=== PATIENT | male | born 1975 | race Caucasian/White ===

== ENCOUNTER → 2018-12-24 07:54 | Outpatient (CLI) | payer MEDICARE, MEDICAID, SELFPAY ==
--- NOTE | 2018-12-24 08:02 | US_ITS ---
STUDY: ABDOMINAL ULTRASOUND - RIGHT UPPER QUADRANT REASON FOR VISIT: Male, 43 years old abdominal pain when eating. TECHNIQUE: Ultrasound evaluation of the right upper quadrant was performed with real-time and static thayer-scale imaging. TECHNICAL QUALITY: Examination limited by bowel gas. COMPARISON: None. FINDINGS: Liver: The liver measures 16.9 cm. There is increased echogenicity consistent with fatty infiltration. The bile ducts are within normal limits. There is hepatic color flow. The direction of portal flow is hepatopetal. There is no demonstrated mass lesion. Gallbladder: Normal distended gallbladder. The gallbladder wall measures 2.2 mm. There is a negative sonographic Pruitt's sign. There is no pericholecystic fluid. There are no gallstones. Common Bile Duct (C.B.D.): The common bile duct measures 3.5 mm. Pancreas: Normal size of the head, body and proximal tail of the pancreas. The distal tail is obscured. There is normal echogenicity of the pancreas. There is no demonstrated pancreatic mass or cyst. Right Kidney: Normal size of the right kidney. The right kidney measures 10.0 cm. Normal renal cortex. The right cortex measures 1.6 cm. There is no demonstrated renal mass or cyst. There is no right hydronephrosis. US/Abdomen Limited IMPRESSION: Fatty infiltration of the liver without other sonographic evidence of right upper quadrant abnormality. Electronically Signed: Enrrique Cornelius DO at 17:11 EDT Tel [phone], Service support ,
== END ==
PROVIDERS: Family Provider Family Medicine; PCP Family Medicine; Referring Provider Family Medicine; Visit Provider Family Medicine
DX: K76.0 Fatty (change of) liver, not elsewhere classified (principal); R10.9 Unspecified abdominal pain
CPT/HCPCS: 76705

== ENCOUNTER → 2019-01-08 08:05 | Outpatient (CLI) | payer MEDICARE, MEDICAID, SELFPAY ==
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
--- NOTE | 2019-01-08 08:40 | RAD_ITS ---
STUDY: X-RAY - ESOPHAGUS (BARIUM SWALLOW) WITH FLUOROSCOPY REASON FOR EXAM: Male, 43 years old. Dysphasia. History of hiatal hernia. TECHNIQUE: 19 view(s) of the esophagus were obtained following swallowing of barium. FLUOROSCOPY TIME (if supplied): (0:39) minutes/seconds COMPARISON: Comparison is made with prior study dated October 21, 2010. FINDINGS: There is no demonstrated esophageal foreign body. There is no demonstrated stricture or mucosal abnormality. Moderate-sized hiatal hernia without gastroesophageal reflux. The patient ingested a 12 mm tablet of barium without any difficulty. Normal visualized aortic arch and descending thoracic aorta. Normal visualized pulmonary parenchyma. Normal visualized osseous structures of the thorax. RAD/Esophagus Only IMPRESSION: Moderate sized hiatal hernia without gastroesophageal reflux. Electronically Signed: Sterling Aquino, at 9:08 EST , Service support ,
== END ==
PROVIDERS: Family Provider Family Medicine; PCP Family Medicine; Referring Provider Internal Medicine Gastroenterology; Visit Provider Internal Medicine Gastroenterology
DX: J33.8 Other polyp of sinus (principal); J32.9 Chronic sinusitis, unspecified; R13.10 Dysphagia, unspecified
CPT/HCPCS: 70486; 74220

== ENCOUNTER → 2019-03-14 10:20 | Outpatient (CLI) | payer MEDICARE, MEDICAID, SELFPAY ==
--- NOTE | 2019-01-28 14:43 | EKG12_ITS ---
Test Reason : PREOP Blood Pressure : / mmHG Vent. Rate : 084 BPM Atrial Rate : 084 BPM P-R Int : 134 ms QRS Dur : 092 ms QT Int : 388 ms P-R-T Axes : 051 -18 068 degrees QTc Int : 458 ms Normal sinus rhythm Possible Left atrial enlargement Left ventricular hypertrophy Nonspecific T wave abnormality Abnormal ECG Confirmed by BITA AQUINO, AGATA ([id number]), editor farm journal NICOLASA MAST ([id number]) on 01/29/2019 2:49:17 PM Referred By: Shailesh Gama Confirmed By:AGATA SUNSHINE MD
[2019-01-28 15:25] LABS: Hematocrit 49.2 % (40-54); Hemoglobin 16.2 g/dL (13.0-16.5); Mean Corp Hgb Conc 32.9 g/dL (32-36); Mean Corpuscular Hgb 28.2 pg (27.0-32.0); Mean Corpuscular Volume 85.6 fL (80-94); Mean Platelet Vol. 10.6 fl (6.2-12.0); Platelet Count 298 K/mm3 (150-450); RBC Distribution Width CV 14.2 % (11.6-14.6); RBC Distribution Width SD 44.3 fl (35.1-43.9); Red Blood Count 5.75 M/mm3 (4.6-6.2); White Blood Count 9.2 K/mm3 (4.4-11.0)
[2019-01-28 16:13] LABS: Anion Gap 9 (5-15); BUN 15 mg/dL (7-18); BUN/Creat Ratio 11.6 RATIO (10-20); Calcium,Total 9.2 mg/dL (8.5-10.1); Chloride 105 mmol/L (98-107); Creatinine, Serum 1.29 mg/dL (0.70-1.30); EST Glomerular Filtration Rate 65 mL/min (>60); Est Glom Filt Rate - Afr Amer 78 mL/min (>60); Glucose 91 mg/dL (74-106); Potassium 3.5 mmol/L (3.5-5.1); Sodium Level 138 mmol/L (136-145)
[2019-02-05 10:36] VITALS: BP 145/112; PULSE 83; RESP 16; TEMP 36.6; O2SAT 99; BMI 24.7
[2019-02-05] MEDS: Lactated Ringers 1,000 ML 100 ML IV (10:56)
== END ==
PROVIDERS: Family Provider Family Medicine; PCP Family Medicine; Referring Provider Otolaryngology; Visit Provider Otolaryngology
DX: Z01.812 Encounter for preprocedural laboratory examination (principal); Z01.810 Encounter for preprocedural cardiovascular examination; J32.8 Other chronic sinusitis; R94.31 Abnormal electrocardiogram [ECG] [EKG]
CPT/HCPCS: 36415; 80048; 85027; 93005; J7120; J2405

== ENCOUNTER 2019-09-11 14:44 | Emergency (ER) | payer MEDICARE, MEDICAID, SELFPAY ==
[2019-02-05 10:36] VITALS: BMI 24.7
[2019-09-11 14:47] VITALS: BP 180/140; PULSE 96; RESP 18; TEMP 37.2; O2SAT 96; BMI 28.3
--- NOTE | 2019-09-11 15:47 | ED.VIS.GEN ---
History of Present Illness Chief Complaint: Hypertension Informant: Patient, Family Narrative: Patient sent in from [facility] preadmissions testing secondary to high blood pressure. He was there today for preop testing for a scheduled sinus surgery for Monday. His blood pressure was reported 178/120. Patient does have a history of hypertension and is currently on Spironolactone, losartan, clonidine, hydrochlorothiazide, nifedipine, and metoprolol. He was previously seen by a Dr León at the [facility]. Blood pressure medications were optimized and on follow-up his blood pressure was good. Family states they checked his blood pressure at home a few days ago and it was in the 120s over 90s. Family believes that his blood pressure is been okay at home but he gets nervous around hospitals and then he is noted to be hypertensive. He has not been complaining of headaches or chest pain. Patient is deaf and mother at bedside provides majority of history. - Past Medical History (1) Hypertension Status: Chronic (2) High cholesterol Status: Chronic (3) GERD (gastroesophageal reflux disease) Status: Chronic (4) Nasal polyps Status: Chronic (5) Hearing impairment Status: Chronic Past Medical History - Allergies and Home Meds Allergies/Adverse Reactions: Allergies No Known Allergies Allergy (Verified 09/11/19 15:55) Primary Care Physician: Chito Obrien MD [Primary Care Provider] - Prior records reviewed: Yes Lives: With Family Smoking Status: Never smoker Review of Systems General: Denies: Chills, Fever Eyes: Denies: Visual changes - bilaterally ENT: Denies: Bilateral ear pain Cardiovascular: Denies: Chest pain Respiratory: Denies: Dyspnea Gastrointestinal: Denies: Abdominal pain, Nausea, Vomiting Neurological: Denies: Headache Hematologic: Denies: Easy bruising, Easy bleeding Allergy: Denies: Uticaria Physical Exam Vital Signs/Narrative: Vital Signs Temp Pulse Resp BP Pulse Ox 09/11/19 14:47 98.9 F 96 18 180/140 H 96 Inital Vital Signs reviewed: Yes General: Well nourished, Well developed Head: Normocephalic ENT: Moist mucous membranes Neck: Supple Cardiovascular: Regular rate, Regular rhythm Respiratory: No distress, CTA bilaterally Abdomen: Soft, Nontender Extremities: Nontender Skin: Normal color, No rash Neurological: Alert, Normal Strength, Normal Sensation Psychological: Normal affect Diagnostic/Tx/Re-eval - Medical Decision Making Patient has no complaints now and has a normal physical exam. I have recommended the patient check his blood pressures daily and keep a log of this at home. If his systolic blood pressure is greater than 160 he will take an extra dose of clonidine. This was discussed with his primary care doctor who is in agreement with this plan. ED Disposition - Plan for ED Patient: Disposition: Home or Assisted Living Diagnosis: Hypertension Instructions: ED Hypertension Established Referrals: Chito Obrien MD [Primary Care Provider] - As Needed Additional Instructions: Check blood pressure daily and keep a log. If the upper number is greater than 160, take an extra dose of Clonidine (Catapres) 0.1mg
[2019-09-11 15:56] VITALS: BP 182/136; PULSE 86; RESP 16; O2SAT 97
[2019-09-11 16:19] VITALS: BP 172/105
== END 2019-09-11 16:20 | disposition home or self-care (01) ==
PROVIDERS: Emergency Provider Emergency Medicine; PCP Family Medicine
DX: I10 Essential (primary) hypertension (principal); K21.9 Gastro-esophageal reflux disease without esophagitis
CPT/HCPCS: 99282

== ENCOUNTER → 2021-08-31 | Outpatient (CLI) | payer MEDICARE, MEDICAID, SELFPAY ==
--- NOTE | 2021-08-31 09:31 | RAD_ITS ---
STUDY: X-RAY - ESOPHAGUS (BARIUM SWALLOW) WITH FLUOROSCOPY REASON FOR EXAM: Male, 46 years old. DYSPHAGIA TECHNIQUE: 19 view(s) of the esophagus were obtained following swallowing of barium. FLUOROSCOPY TIME (if supplied): (36 seconds) minutes/seconds COMPARISON: Comparison is made with prior study dated 01/08/2019. FINDINGS: There is no demonstrated esophageal foreign body. There is no demonstrated stricture or mucosal abnormality. There is evidence of a moderate-sized hiatal hernia with gastroesophageal reflux. The patient ingested a 12 mm tablet of barium without any difficulty. Normal visualized aortic arch and descending thoracic aorta. Normal visualized pulmonary parenchyma. Normal visualized osseous structures of the thorax. RAD/Esophagus Dual Contrast IMPRESSION: Moderate sized hiatal hernia with gastroesophageal reflux. Electronically Signed: Sterling Aquino MD at 12:32 EDT ,
== END | disposition home or self-care (01) ==
LOC: RAD 09:29
PROVIDERS: PCP Family Medicine; Referring Provider Internal Medicine Gastroenterology; Visit Provider Internal Medicine Gastroenterology
DX: R13.10 Dysphagia, unspecified (principal)
CPT/HCPCS: 74221